=== PATIENT | male | born 1995 | race Caucasian/White ===

== ENCOUNTER 2017-01-26 20:57 | Emergency (ER) | payer BC | END 2017-01-27 00:28 | disposition home or self-care (01) | LOC: ER1 20:57 | DX: S80.01XA Contusion of right knee, initial encounter (principal); S46.912A Strain of unspecified muscle, fascia and tendon at shoulder and upper arm level, left arm, initial encounter; S09.90XA Unspecified injury of head, initial encounter; V43.52XA Car driver injured in collision with other type car in traffic accident, initial encounter; Y92.410 Unspecified street and highway as the place of occurrence of the external cause | CPT/HCPCS: 70450; 73030; 73564; 99284 ==